=== PATIENT | female | born 1995 | race Caucasian/White ===

== ENCOUNTER 2019-04-18 07:24 | Inpatient (IN) | payer OTHER ==
[~2019-04-18] VITALS: Ht 160 cm; Wt 106.6 kg
[~2019-04-18 07:24] MED LIST: PREN-385 PO
[2019-04-18] MEDS ORDERED: LACTATED RINGERS 1,000 ML IV SCH (07:53)
[2019-04-18] MEDS ORDERED: CITRIC ACID/SODIUM CITRATE 30 ML UDC PO SCH (07:55)
[2019-04-18 10:09] VITALS: BP 113/59
[2019-04-18] MEDS ORDERED: MIDAZOLAM 2 MG/2 ML VIAL ONE (10:09)
[2019-04-18] MEDS ORDERED: PROPOFOL 200 MG/20 ML VIAL IV ONE (10:10)
[2019-04-18] MEDS ORDERED: MORPHINE PRES FREE 10 MG/10 ML AMP IV ONE (10:10)
[2019-04-18] MEDS ORDERED: ONDANSETRON 4 MG/2 ML VIAL ONE (10:10)
[2019-04-18 10:15] LABS: BASOPHILS % (AUTO) 0.3 % (0.0-2.0); EOSINOPHILS # (AUTO) 0.2 K/uL (0-0.4); EOSINOPHILS % (AUTO) 1.7 % (0.0-4.0); HEMATOCRIT 32.4 % (36-48); HEMOGLOBIN 10.9 g/dL (12.0-16.0); LYMPHOCYTES # (AUTO) 2.2 K/uL (2.5-16.5); LYMPHOCYTES % (AUTO) 23.6 % (20.5-51.1); MEAN CORPUSCULAR HEMOGLOBIN 27 pg (27-31); MEAN CORPUSCULAR HGB CONC 34 g/dL (33-37); MEAN CORPUSCULAR VOLUME 80.6 fL (80-94); MONOCYTES # (AUTO) 0.6 K/uL (0.8-1.0); MONOCYTES % (AUTO) 6.2 % (1.7-9.3); NEUTROPHILS # (AUTO) 6.4 K/uL (1.8-7.7); NEUTROPHILS % (AUTO) 68.2 % (42.2-75.2); PLATELET COUNT (AUTO) 226 K/uL (140-450); RED BLOOD CELL COUNT(AUTO) 4.02 MIL/uL (4.20-5.40); RED CELL DISTRIBUTION WIDTH 14.3 % (11.6-13.7); WHITE BLOOD COUNT (AUTO) 9.3 K/uL (4.8-10.8)
[2019-04-18 10:40] LABS: APPEARANCE,URINE SL CLOUDY (CLEAR); BILIRUBIN,URINE NEGATIVE (NEGATIVE); BLOOD, URINE 2+ (NEGATIVE); COLOR,URINE YELLOW (YELLOW); LEUKOCYTE ESTERASE ,URINE 3+ (NEGATIVE); NITRITE, URINE NEGATIVE (NEGATIVE); UGLUCOSE NEGATIVE (NEGATIVE)
[2019-04-18] MEDS ORDERED: OXYTOCIN 20 UNITS in LACTATED RINGERS 1,000 ML IV SCH ×2 (10:52→13:52)
[2019-04-18] MEDS ORDERED: ONDANSETRON 4 MG/2 ML VIAL IVP PRN ×2 (10:55)
[2019-04-18] MEDS ORDERED: NALOXONE 0.4 MG/ML VIAL IVP PRN ×3 (10:55)
[2019-04-18] MEDS ORDERED: diphenhydrAMINE 50 MG/ML VIAL IVP PRN ×2 (10:55)
[2019-04-18] MEDS ORDERED: MEPERIDINE 25 MG/ML SYR IVP PRN (10:55)
[2019-04-18] MEDS ORDERED: HYDROmorphone 1 MG/ML AMP IVP PRN (10:55)
[2019-04-18] MEDS ORDERED: NALBUPHINE 10 MG/ML AMP IVP PRN (10:55)
[2019-04-18 11:42] LABS: RBC,URINE 20-50 /HPF (0-5); WBC,URINE 16-25 (MOD) /HPF (0-5)
[2019-04-18] MEDS ORDERED: OXYTOCIN 20 UNITS/LR PREMIX 1,000 ML IV ONE (13:10)
[2019-04-18] MEDS ORDERED: MEASLES, MUMPS, AND RUBELLA 1 VIAL SQVAC PRN (13:55)
[2019-04-18] MEDS ORDERED: KETOROLAC 30 MG/ML VIAL IVP PRN (13:55)
[2019-04-18] MEDS ORDERED: HYDROmorphone PFS 2 MG/ML SYR IVP PRN (13:55)
[2019-04-18] MEDS: KETOROLAC 30 MG/ML VIAL IM/IVP SCH ×2 (17:00→17:33)
[2019-04-19] MEDS: KETOROLAC 30 MG/ML VIAL IM/IVP SCH ×3 (00:01→13:57)
[2019-04-19 08:37] LABS: BASOPHILS % (AUTO) 0.4 % (0.0-2.0); EOSINOPHILS # (AUTO) 0.1 K/uL (0-0.4); EOSINOPHILS % (AUTO) 1.2 % (0.0-4.0); HEMATOCRIT 29.9 % (36-48); HEMOGLOBIN 10.3 g/dL (12.0-16.0); LYMPHOCYTES # (AUTO) 1.7 K/uL (2.5-16.5); LYMPHOCYTES % (AUTO) 22.4 % (20.5-51.1); MEAN CORPUSCULAR HEMOGLOBIN 28 pg (27-31); MEAN CORPUSCULAR HGB CONC 35 g/dL (33-37); MONOCYTES # (AUTO) 0.3 K/uL (0.8-1.0); MONOCYTES % (AUTO) 4.7 % (1.7-9.3); NEUTROPHILS # (AUTO) 5.3 K/uL (1.8-7.7); NEUTROPHILS % (AUTO) 71.3 % (42.2-75.2); PLATELET COUNT (AUTO) 193 K/uL (140-450); RED BLOOD CELL COUNT(AUTO) 3.74 MIL/uL (4.20-5.40); RED CELL DISTRIBUTION WIDTH 14.1 % (11.6-13.7); WHITE BLOOD COUNT (AUTO) 7.4 K/uL (4.8-10.8)
--- NOTE | 2019-04-19 08:40 | NUR ---
PATIENT HAS BEEN SCREENED AND CATEGORIZED LOW NUTRITION RISK. PATIENT WILL BE SEEN WITHIN 7 DAYS OF ADMISSION. 04/24/[address]
[2019-04-20] MEDS: IBUPROFEN 600 MG TAB PO PRN ×2 (08:52→17:51)
[2019-04-20] MEDS: BISACODYL 5 MG TABEC PO SCH (08:52)
[2019-04-20] MEDS: DOCUSATE SODIUM 100 MG GELCAP PO SCH (08:52)
[2019-04-20] MEDS: SIMETHICONE 80 MG TAB.CHEW PO SCH ×3 (08:52→17:51)
[2019-04-20] MEDS ORDERED: SODIUM PHOSPHATE 118 ML ENEM RC PRN (09:00)
[2019-04-21] MEDS: DOCUSATE SODIUM 100 MG GELCAP PO SCH (08:58)
[2019-04-21] MEDS: IBUPROFEN 600 MG TAB PO PRN (08:59)
[2019-04-21] MEDS: SIMETHICONE 80 MG TAB.CHEW PO SCH ×3 (08:59→17:24)
[2019-04-21] MEDS: BISACODYL 5 MG TABEC PO SCH (08:59)
[2019-04-21] MEDS ORDERED: predniSONE 20 MG TAB PO SCH (14:03)
[2019-04-21] MEDS ORDERED: KETOROLAC 30 MG/ML VIAL IM PRN (14:25)
[2019-04-21] MEDS: ACETAMINOPHEN 325 MG TAB PO PRN ×2 (14:33→21:44)
[2019-04-22] MEDS: ACETAMINOPHEN 325 MG TAB PO PRN ×2 (07:48→07:50)
[2019-04-22] MEDS: IBUPROFEN 600 MG TAB PO PRN (07:59)
[2019-04-22 08:03] LABS: BASOPHILS % (AUTO) 0.3 % (0.0-2.0); EOSINOPHILS # (AUTO) 0.2 K/uL (0-0.4); EOSINOPHILS % (AUTO) 2.5 % (0.0-4.0); HEMATOCRIT 31.8 % (36-48); HEMOGLOBIN 10.7 g/dL (12.0-16.0); LYMPHOCYTES # (AUTO) 1.9 K/uL (2.5-16.5); LYMPHOCYTES % (AUTO) 20.3 % (20.5-51.1); MEAN CORPUSCULAR HEMOGLOBIN 27 pg (27-31); MEAN CORPUSCULAR HGB CONC 34 g/dL (33-37); MEAN CORPUSCULAR VOLUME 80.9 fL (80-94); MONOCYTES # (AUTO) 0.4 K/uL (0.8-1.0); MONOCYTES % (AUTO) 3.9 % (1.7-9.3); NEUTROPHILS # (AUTO) 6.9 K/uL (1.8-7.7); PLATELET COUNT (AUTO) 336 K/uL (140-450); RED BLOOD CELL COUNT(AUTO) 3.93 MIL/uL (4.20-5.40); RED CELL DISTRIBUTION WIDTH 14.3 % (11.6-13.7); WHITE BLOOD COUNT (AUTO) 9.4 K/uL (4.8-10.8)
[2019-04-22] MEDS: DOCUSATE SODIUM 100 MG GELCAP PO SCH (08:33)
[2019-04-22] MEDS: BISACODYL 5 MG TABEC PO SCH (08:34)
[2019-04-22] MEDS: SIMETHICONE 80 MG TAB.CHEW PO SCH ×3 (08:36→18:16)
[2019-04-22] MEDS ORDERED: predniSONE 20 MG TAB PO SCH (09:00)
[2019-04-22] MEDS ORDERED: LACTATED RINGERS 1,000 ML IV SCH (15:55)
[2019-04-23] MEDS: SIMETHICONE 80 MG TAB.CHEW PO SCH (09:00)
[2019-04-23] MEDS ORDERED: predniSONE 20 MG TAB PO SCH (09:00)
[2019-04-23] MEDS: DOCUSATE SODIUM 100 MG GELCAP PO SCH (09:00)
[2019-04-23] MEDS: BISACODYL 5 MG TABEC PO SCH (09:00)
== END 2019-04-23 15:20 | disposition home or self-care (01) | DRG 540 ==
LOC: MLD 07:24 → MFCC 11:36
PROVIDERS: ADMIT Obstetrics & Gynecology; ATTEND Obstetrics & Gynecology
PROC: 3E0234Z Introduction of Serum, Toxoid and Vaccine into Muscle, Percutaneous Approach (ICD-10-PCS; 2019-04-18)
PROC: 3E0134Z Introduction of Serum, Toxoid and Vaccine into Subcutaneous Tissue, Percutaneous Approach (ICD-10-PCS; 2019-04-18)
PROC: 10D00Z1 Extraction of Products of Conception, Low, Open Approach (ICD-10-PCS; principal; 2019-04-18 10:00)
DX: O34.211 Maternal care for low transverse scar from previous cesarean delivery (principal); N73.6 Female pelvic peritoneal adhesions (postinfective); O99.89 Other specified diseases and conditions complicating pregnancy, childbirth and the puerperium; O99.824 Streptococcus B carrier state complicating childbirth; Z37.0 Single live birth; Z23 Encounter for immunization; Z3A.38 38 weeks gestation of pregnancy
CPT/HCPCS: 36415; 51702; 81001; 85025; 86592; 86886; 86900; 86901; 87081; 87086; J0690; J1885; J2250; J2270; J2405; J2590; J2704; J7060; J7120; J7512

== ENCOUNTER 2021-01-01 10:34 | Observation (INO) | payer OTHER, SELFPAY ==
[~2021-01-01] VITALS: Ht 160 cm; Wt 127.5 kg
[2021-01-01] MEDS ORDERED: FERR-212 PO (11:42)
== END 2021-01-01 13:35 | disposition home or self-care (01) ==
LOC: MLD 10:34
PROVIDERS: ADMIT Obstetrics & Gynecology; ATTEND Obstetrics & Gynecology
DX: O47.1 False labor at or after 37 completed weeks of gestation (principal); Z20.822 Contact with and (suspected) exposure to COVID-19; O34.219 Maternal care for unspecified type scar from previous cesarean delivery; Z3A.38 38 weeks gestation of pregnancy
CPT/HCPCS: 59025; 76805; 81000; G0378; U0003